=== PATIENT | female | born 1935 | race Caucasian/White ===

== ENCOUNTER 2017-05-18 08:33 | Inpatient (IN) | payer OTHER ==
[2017-05-18] VITALS (7 sets, daily range): BP systolic 93–125; BP diastolic 48–64
[~2017-05-18] VITALS: Ht 160 cm; Wt 55.5 kg
[2017-05-18 09:10] LABS: BASOPHIL % 0.7 % (0-2); PLATELET COUNT 313 x10^3mcL (130-400)
[2017-05-18 09:11] LABS: RED CELL DISTRIBUTION WIDTH 14.8 % (11.5-14.5)
[2017-05-18 09:24] LABS: CALCIUM 9.2 mg/dL (8.5-10.1); CARBON DIOXIDE 27.6 mmol/L (21-32); CHLORIDE SERUM 105 mmol/L (98-107); CREATININE SERUM 0.9 mg/dL (0.6-1.0); GLUCOSE SERUM 119 mg/dL (74-106); POTASSIUM SERUM 4.2 mmol/L (3.5-5.1); SODIUM SERUM 141 mmol/L (136-145)
[2017-05-18 09:36] LABS: T3 TOTAL 0.96 ng/mL
[2017-05-18 09:40] LABS: CK-MB 3.5 ng/mL (0-3.6); FREE T4 0.95 ng/dL (0.76-1.46); T4(THYROXINE) 5.8 ug/dL (4.7-13.3)
[2017-05-18] MEDS ORDERED: CARDIZEM PO (09:44)
[2017-05-18] MEDS ORDERED: PREDNISONE20 MG PO (09:44)
[2017-05-18] MEDS ORDERED: OCUVITE EYE +1 EACH PO (09:45)
[2017-05-18] MEDS ORDERED: DOXYCYCLINE MO100 MG PO (09:47)
[2017-05-18] MEDS ORDERED: BEVESPI AEROS10.7 GM INH (09:48)
[2017-05-18] MEDS ORDERED: PROVENTIL0.09 MG/A1 INH (09:48)
[2017-05-18] MEDS ORDERED: PHECLUD PO (09:49)
[2017-05-18] MEDS ORDERED: DUONEB (09:49)
[2017-05-18 10:07] LABS: ALBUMIN 3.5 g/dL (3.4-5.0); ALKALINE PHOSPHATASE 91 U/L (46-116); ALT/SGPT 19 U/L (14-59); AST/SGOT 23 U/L (15-37); BILIRUBIN TOTAL 0.38 mg/dL (0.20-1.00); TOTAL PROTEIN, SERUM 7.5 g/dL (6.4-8.2)
[2017-05-18 10:30] LABS: ERYTHROCYTE SED RATE 40 mm/hr (0-30)
[2017-05-18 10:38] LABS: UA SPECIFIC GRAVITY >=1.030 (1.005-1.035); microscopic required? YES; urine erythrocyte 1+ (NEGATIVE)
[2017-05-18 11:39] LABS: PHOSPHOROUS 3.8 mg/dL (2.5-4.9)
[2017-05-18 11:40] LABS: CHOLESTEROL/HDL RATIO 3.4
[2017-05-18 12:01] LABS: AMPHETAMINE QUAL UR NONE DETECTED (NEG <=1000)
[2017-05-19 05:42] VITALS: BP 119/67
[2017-05-19 07:45] LABS: PLATELET COUNT 284 x10^3mcL (130-400)
[2017-05-19 07:46] LABS: BASOPHIL % 0 % (0-2); RED CELL DISTRIBUTION WIDTH 14.8 % (11.5-14.5)
[2017-05-19 08:49] LABS: CARBON DIOXIDE 28.2 mmol/L (21-32); CREATININE SERUM 0.8 mg/dL (0.6-1.0)
[2017-05-19 09:07] VITALS: BP 100/55
[2017-05-19 10:04] LABS: CALCIUM 9.2 mg/dL (8.5-10.1); CHLORIDE SERUM 108 mmol/L (98-107); POTASSIUM SERUM 4.6 mmol/L (3.5-5.1); SODIUM SERUM 144 mmol/L (136-145)
[2017-05-19 10:05] LABS: GLUCOSE SERUM 159 mg/dL (74-106)
[2017-05-19 13:14] VITALS: BP 112/48
[2017-05-19 16:53] VITALS: BP 112/54
[2017-05-19 20:37] VITALS: BP 102/50
[2017-05-20 05:38] VITALS: BP 118/62
[2017-05-20 06:42] LABS: PLATELET COUNT 304 x10^3mcL (130-400)
[2017-05-20 07:09] LABS: CALCIUM 9.1 mg/dL (8.5-10.1); CHLORIDE SERUM 109 mmol/L (98-107); CREATININE SERUM 0.9 mg/dL (0.6-1.0); GLUCOSE SERUM 144 mg/dL (74-106); POTASSIUM SERUM 4.1 mmol/L (3.5-5.1); SODIUM SERUM 143 mmol/L (136-145)
[2017-05-20 07:20] LABS: BASOPHIL % 0 % (0-2); RED CELL DISTRIBUTION WIDTH 15.1 % (11.5-14.5)
[2017-05-20 18:48] VITALS: BP 98/41
[2017-05-20 21:36] VITALS: BP 121/62
[2017-05-21 07:00] VITALS: BP 109/56
[2017-05-21 07:07] LABS: PLATELET COUNT 300 x10^3mcL (130-400)
[2017-05-21 07:22] LABS: CALCIUM 8.8 mg/dL (8.5-10.1); CARBON DIOXIDE 25.7 mmol/L (21-32); CHLORIDE SERUM 107 mmol/L (98-107); CREATININE SERUM 0.9 mg/dL (0.6-1.0); GLUCOSE SERUM 156 mg/dL (74-106); POTASSIUM SERUM 3.9 mmol/L (3.5-5.1); SODIUM SERUM 141 mmol/L (136-145)
[2017-05-21 07:26] LABS: BASOPHIL % 0 % (0-2); RED CELL DISTRIBUTION WIDTH 15.3 % (11.5-14.5)
[2017-05-21 10:26] VITALS: BP 113/56
[2017-05-21 14:15] VITALS: BP 117/55
[2017-05-21 17:27] VITALS: BP 128/55
[2017-05-21] MEDS ORDERED: LOSARTAN POTASS25 M1 PO (17:41)
[2017-05-21 19:46] VITALS: BP 114/64
[2017-05-21 20:51] VITALS: BP 114/64
[2017-05-22] VITALS (7 sets, daily range): BP systolic 121–139; BP diastolic 54–76
[2017-05-22 07:06] LABS: PLATELET COUNT 295 x10^3mcL (130-400)
[2017-05-22 07:08] LABS: BASOPHIL % 0 % (0-2); RED CELL DISTRIBUTION WIDTH 14.8 % (11.5-14.5)
[2017-05-22 07:20] LABS: CHLORIDE SERUM 108 mmol/L (98-107); CREATININE SERUM 0.9 mg/dL (0.6-1.0); GLUCOSE SERUM 132 mg/dL (74-106); POTASSIUM SERUM 3.7 mmol/L (3.5-5.1); SODIUM SERUM 142 mmol/L (136-145)
[2017-05-23 04:49] VITALS: BP 130/69
[2017-05-23 09:35] VITALS: BP 131/69
[2017-05-23] MEDS ORDERED: MUCINEX600 MG PO (10:17)
[2017-05-23] MEDS ORDERED: TES100 PO (10:17)
[2017-05-23] MEDS ORDERED: MEDDP PO (10:25)
[2017-05-23] MEDS ORDERED: ROBDML PO (10:27)
[2017-05-23 10:31] VITALS: BP 131/69
[2017-05-23] MEDS ORDERED: ATIVAN0.5 M1 PO (13:44)
[2017-05-24] MEDS ORDERED: ROBDML PO (09:15)
[2017-05-24] MEDS ORDERED: MUCINEX600 MG PO (09:15)
[2017-05-24] MEDS ORDERED: TES100 PO (09:15)
== END 2017-05-23 19:30 | disposition home or self-care (01) | DRG 177 ==
LOC: ED 08:33 → DU 09:59 → MU 09:59 → DU 11:00 → MU 05-21 17:59
PROVIDERS: Specialist; ADMIT Family Medicine Sports Medicine
DX: J69.0 Pneumonitis due to inhalation of food and vomit (principal); N17.0 Acute kidney failure with tubular necrosis; J96.21 Acute and chronic respiratory failure with hypoxia; J44.1 Chronic obstructive pulmonary disease with (acute) exacerbation; D68.69 Other thrombophilia; E11.51 Type 2 diabetes mellitus with diabetic peripheral angiopathy without gangrene; R80.9 Proteinuria, unspecified; E78.5 Hyperlipidemia, unspecified; R31.9 Hematuria, unspecified
CPT/HCPCS: 36600; 82962; 83880; 84439; 92610-GN; J1956; J2543; J2920; J2930; J3535; J7030; J7613; J7620; J7633; J7644; Q0092